=== PATIENT | female | born 1990 | race African-American/Black ===

== ENCOUNTER 2023-04-24 09:42 | Emergency (ER) | payer MEDICAID, OTHER ==
[~2023-04-24] VITALS: Ht 162.6 cm; Wt 59.0 kg
[2023-04-24 09:59] VITALS: O2SAT 100
[2023-04-24 10:12] VITALS: BP 117/72; PULSE 108; RESP 14; TEMP 98.5
[2023-04-24] MEDS ORDERED: NAPR-681 MT (10:27)
[2023-04-24] MEDS ORDERED: CYCL5TAB MT (10:27)
[2023-04-24] MEDS ORDERED: LIDO700A15 TP (10:27)
[2023-04-24] MEDS ORDERED: TOPUD MT (10:27)
[2023-04-24] MEDS ORDERED: KETOROLAC 30MG/ML VIAL IM ONE (10:30)
[2023-04-24] MEDS ORDERED: LIDOCAINE 5% PATCH TOP SCH (10:30)
[2023-04-24] MEDS ORDERED: KETOROLAC 30MG/ML VIAL IM NR (12:15)
== END 2023-04-24 13:24 | disposition home or self-care (01) ==
LOC: ER 09:42
DX: S16.1XXA Strain of muscle, fascia and tendon at neck level, initial encounter (principal); E11.9 Type 2 diabetes mellitus without complications; X58.XXXA Exposure to other specified factors, initial encounter; Y93.89 Activity, other specified; Y92.89 Other specified places as the place of occurrence of the external cause; Y99.8 Other external cause status
CPT/HCPCS: 99283